=== PATIENT | male | born 1995 | race Caucasian/White ===

== ENCOUNTER → 2022-07-23 | Outpatient (REF) | LOC: M PLAIMG 15:50 | PROVIDERS: ATTEND Internal Medicine | DX: R52 Pain, unspecified (principal) ==

== ENCOUNTER 2023-11-09 07:58 | Inpatient (IN) | payer MEDICAID, OTHER, SELFPAY ==
[~2023-11-09] VITALS: Ht 185.4 cm; Wt 78.4 kg
[2023-11-09 08:41] LABS: HEMOGLOBIN 17.2 g/dl (13.5-17.5); MEAN CORPUSCULAR HEMOGLOBIN 28.3 pg (27.0-33.0); MEAN CORPUSCULAR HGB CONC 33.7 g/dl (32.0-36.5); PLATELET COUNT, AUTOMATED 303 10^3/uL (150-450); RED BLOOD COUNT 6.07 10^6/uL (4.30-6.10); WHITE BLOOD COUNT 7.2 10^3/uL (4.0-10.0)
[2023-11-09 08:59] LABS: ETHYL ALCOHOL (ETHANOL) 0.004 % (0.000-0.010)
[2023-11-09 09:01] LABS: ALBUMIN 4.6 G/DL (3.2-5.2); ALKALINE PHOSPHATASE 55 U/L (46-116); ALT/SGPT 80 U/L (7.0-40); AST/SGOT 53 U/L (<34); BILIRUBIN,DIRECT 0.2 MG/DL (<0.4); BILIRUBIN,TOTAL 0.5 MG/DL (0.3-1.2); BLOOD UREA NITROGEN 19 MG/DL (9-23); CALCIUM LEVEL 10.1 MG/DL (8.5-10.1); CARBON DIOXIDE LEVEL 30 MMOL/L (20-31); CHLORIDE LEVEL 102 MMOL/L (98-107); CREATININE FOR GFR 1.13 MG/DL (0.70-1.30); GLOMERULAR FILTRATION RATE > 60.0 (>60); GLUCOSE, FASTING 96 MG/DL (60-100); POTASSIUM SERUM 4.4 MMOL/L (3.5-5.1); SALICYLATE LEVEL < 3.0 MG/DL (<30); SODIUM LEVEL 138 MMOL/L (136-145); TOTAL PROTEIN 7.3 G/DL (5.7-8.2)
[2023-11-09 09:02] LABS: AMPHETAMINES LEVEL URINE NEGATIVE (NEGATIVE); BARBITURATES URINE NEGATIVE (NEGATIVE); BENZODIAZEPINES URINE NEGATIVE (NEGATIVE); CANNABINOIDS URINE NEGATIVE (NEGATIVE); COCAINE METABOLITE URINE NEGATIVE (NEGATIVE); METHADONE URINE NEGATIVE (NEGATIVE); OPIATES URINE NEGATIVE (NEGATIVE); PHENCYCLIDINE URINE NEGATIVE (NEGATIVE)
[2023-11-09 09:03] LABS: THYROID STIMULATING HORMONE 2.162 uIU/ML (0.55-4.78)
[2023-11-09 13:49] LABS: ALBUMIN 4.4 G/DL (3.2-5.2); BILIRUBIN,DIRECT 0.1 MG/DL (<0.4); BILIRUBIN,TOTAL 0.5 MG/DL (0.3-1.2); TOTAL PROTEIN 7.1 G/DL (5.7-8.2)
[2023-11-09] MEDS ORDERED: ROPI5TAB19 PO (21:59)
[2023-11-09] MEDS ORDERED: SERT50TA29 PO (21:59)
[2023-11-09] MEDS ORDERED: MULT-40 PO (21:59)
[2023-11-09] MEDS ORDERED: MAGN400T35 PO (21:59)
[2023-11-09] MEDS ORDERED: VITA100093 PO (21:59)
[2023-11-09] MEDS ORDERED: HYDR-3363 PO (21:59)
[2023-11-09] MEDS ORDERED: HOME MED LIST COMPLETE! XX SCH (23:45)
[2023-11-10] MEDS ORDERED: ACETAMINOPHEN TAB 650MG DOSE (2X325MG) PO PRN (15:40)
[2023-11-10] MEDS ORDERED: IBUPROFEN 400MG TAB PO PRN (15:40)
[2023-11-10] MEDS ORDERED: MAALOX 30 ML SUSP *UDC PO PRN (15:40)
[2023-11-10] MEDS ORDERED: diphenhydrAMINE 25MG CAP PO PRN (15:40)
[2023-11-10 17:24] VITALS: BP 132/81; TEMP 98.5; O2SAT 100
[2023-11-11 06:44] VITALS: BP 124/73; TEMP 97; O2SAT 97
[2023-11-11] MEDS ORDERED: PROPRANOLOL 20 MG TAB PO PRN (09:40)
[2023-11-11 16:07] VITALS: BP 151/80; TEMP 98.6; O2SAT 99
[2023-11-11] MEDS: traZODone 50 MG TAB PO PRN (20:14)
[2023-11-11] MEDS: SERTRALINE 100 MG TAB PO SCH (20:14)
[2023-11-12 05:49] VITALS: BP 136/61; TEMP 97.4; O2SAT 99
[2023-11-12] MEDS: buPROPion **XL** TABLET 150MG (WELLBUTRIN XL) PO SCH (10:00)
[2023-11-12 16:25] VITALS: BP 140/72; TEMP 98.5; O2SAT 99
[2023-11-13 06:40] VITALS: BP 146/70; TEMP 96.7; O2SAT 99
[2023-11-13 16:23] VITALS: BP 144/71; TEMP 98.4; O2SAT 98
[2023-11-13] MEDS: MOM 30ML SUSPENSION UDC PO PRN (16:53)
[2023-11-14] MEDS: hydrOXYzine 50 MG TAB PO PRN (07:33)
[2023-11-14 16:16] VITALS: BP 148/65; TEMP 98.8; O2SAT 97
[2023-11-15 06:23] VITALS: BP 146/65; TEMP 98.1; O2SAT 99
[2023-11-15] MEDS ORDERED: BUPR150T12 PO (08:56)
[2023-11-15] MEDS ORDERED: HYDR50TA70 PO (08:56)
[2023-11-15] MEDS ORDERED: TRAZ-252 PO (08:56)
[2023-11-15] MEDS ORDERED: ZOLO100T PO (08:56)
== END 2023-11-15 12:08 | disposition home or self-care (01) | DRG 882 ==
LOC: M ED 09:11 → M ED INP 11-10 15:36 → M PSY 11-10 16:55
PROVIDERS: ADMIT Student in an Organized Health Care Education/Training Program; ATTEND Student in an Organized Health Care Education/Training Program
DX: F43.20 Adjustment disorder, unspecified (principal); R45.851 Suicidal ideations; F32.A Depression, unspecified; F41.9 Anxiety disorder, unspecified; Z63.0 Problems in relationship with spouse or partner; Z83.3 Family history of diabetes mellitus; Z79.899 Other long term (current) drug therapy; Z11.52 Encounter for screening for COVID-19